=== PATIENT | male | born 1965 | race Caucasian/White ===

== ENCOUNTER → 2024-03-23 | Outpatient (CLI) | payer BC ==
--- NOTE | 2024-03-23 11:50 | FL ---
EXAMINATION TYPE: FL UGI air DATE OF EXAM: 03/23/2024 11:46 AM COMPARISON: NONE CLINICAL HISTORY: K44.0 DIAPHRAGMATIC HERNIA WITH OBSTRUCTION, WITHO A total of 73 seconds of fluoroscopic time was utilized during procedure and 17 images obtained. Preliminary view of the abdomen reveals a normal bowel gas pattern. Mild degenerative changes are not ed of the thoracolumbar spine. Upper GI examination was performed according to the air contrast techn ique. Barium and effervescent crystal was swallowed without difficulty or delay. Esophageal perista lsis and motility are within normal limits. There is no evidence for esophagitis, intraluminal mass, hiatal hernia or gastroesophageal reflux. The stomach has a normal appearance in terms of its size, shape and location. No gastric filling defects or ulcer craters are seen. The duodenal bulb and sw eep are also free of intraluminal lesion or ulcer crater. IMPRESSION: Unremarkable evaluation.
== END | disposition home or self-care (01) ==
LOC: RADUSWWP 10:49
PROVIDERS: ATTEND Surgery
DX: K44.0 Diaphragmatic hernia with obstruction, without gangrene (principal)
CPT/HCPCS: 74246